=== PATIENT | male | born 1985 | race Caucasian/White ===

== ENCOUNTER 2019-10-02 13:43 | Emergency (ER) | payer SELFPAY ==
[~2019-10-02] VITALS: Ht 170.2 cm; Wt 62.0 kg
[2019-10-02] MEDS ORDERED: LIDOCAINE HCL 1% 20ML VIAL (Pyxis) INJ INFIL ONE (15:45)
[2019-10-02] MEDS ORDERED: ACETAMINOPHEN 325MG TABLET PO ONE (15:45)
[2019-10-02 16:43] VITALS: BP 11/50
== END 2019-10-02 16:44 | disposition home or self-care (01) ==
LOC: ER 13:43
DX: S61.217A Laceration without foreign body of left little finger without damage to nail, initial encounter (principal); W45.8XXA Other foreign body or object entering through skin, initial encounter; Y93.89 Activity, other specified; Y92.89 Other specified places as the place of occurrence of the external cause; Y99.8 Other external cause status
CPT/HCPCS: 12001; 99282; J3490